=== PATIENT | female | born 1935 | race African-American/Black ===

== ENCOUNTER → 2020-10-08 | Day surgery (SDC) | payer OTHER ==
[~2020-10-08] MED LIST: AMLODIPINE BESY10 MG PO; CARVEDILOL3.125 MG PO; FENTANYL CITRATE/PF 100MCG/2 ML INJ ONE; MIDAZOLAM HCL 2 MG/2 ML VIAL ONE; OR PHACO EYE KIT ONE; PREOP PHACO EYE KIT ONE
[2020-10-08 10:55] VITALS: BP 132/88
== END | disposition home or self-care (01) ==
LOC: OR 08:33
PROVIDERS: ATTEND Ophthalmology
DX: H25.12 Age-related nuclear cataract, left eye (principal); I10 Essential (primary) hypertension; E78.5 Hyperlipidemia, unspecified; M81.0 Age-related osteoporosis without current pathological fracture; Z01.812 Encounter for preprocedural laboratory examination; Z20.828 Contact with and (suspected) exposure to other viral communicable diseases
CPT/HCPCS: 66984; J2250; J3010; U0002; V2632

== ENCOUNTER → 2020-10-22 | Day surgery (SDC) | payer OTHER ==
[2020-10-22 13:45] VITALS: BP 156/98
== END | disposition home or self-care (01) ==
LOC: OR 10:14
PROVIDERS: ATTEND Ophthalmology
DX: H25.11 Age-related nuclear cataract, right eye (principal); M81.0 Age-related osteoporosis without current pathological fracture; E78.5 Hyperlipidemia, unspecified; Z91.013 Allergy to seafood; Z01.812 Encounter for preprocedural laboratory examination; Z20.828 Contact with and (suspected) exposure to other viral communicable diseases
CPT/HCPCS: J2250; J3010; U0002; V2632